=== PATIENT | female | born 1960 | race Caucasian/White ===

== ENCOUNTER 2017-09-10 11:54 | Inpatient (IN) | END 2017-09-11 18:35 | disposition home or self-care (01) | DRG 638 ==

== ENCOUNTER 2019-04-26 05:56 | Day surgery (SDC) | payer OTHER ==
[~2019-04-26] VITALS: Ht 160 cm; Wt 91.0 kg
[~2019-04-26 05:56] MED LIST: AMLO2.5T2 PO; ASPI-831 PO; ATOR-2 PO; GLIM4TAB3 PO; LEVO75TA5 PO; METF100010 PO; glyburide; lisinopril
[2019-04-26 06:43] VITALS: Ht 160 cm; Wt 91.0 kg
[2019-04-26 07:14] VITALS: BP 185/81; PULSE 52; RESP 17
[2019-04-26] MEDS ORDERED: PROPOFOL 20 ML ONE ×2 (07:44→08:19)
[2019-04-26 08:58] VITALS: BP 151/64; RESP 18
== END 2019-04-26 09:50 | disposition home or self-care (01) ==
LOC: GIL 05:56
PROVIDERS: ATTEND Internal Medicine Gastroenterology
DX: R19.4 Change in bowel habit (principal); K64.8 Other hemorrhoids; I10 Essential (primary) hypertension; E03.9 Hypothyroidism, unspecified; E11.9 Type 2 diabetes mellitus without complications; Z79.84 Long term (current) use of oral hypoglycemic drugs; E66.9 Obesity, unspecified; Z68.35 Body mass index [BMI] 35.0-35.9, adult
CPT/HCPCS: 45380; 82962; 88305; Z7610